=== PATIENT | female | born 1970 | race Caucasian/White ===

== ENCOUNTER 2024-01-13 13:16 | Inpatient (IN) | payer BC ==
--- NOTE | 2024-01-13 13:46 | ED ---
General Adult HPI - General Chief complaint: Extremity Injury, Lower Stated complaint: Left Leg Infection Time Seen by Provider: 01/13/24 13:34 Source: patient Mode of arrival: ambulatory Limitations: no limitations - History of Present Illness Initial comments: Dictation was produced using [employer] dictation software. please excuse any grammatical, word or spelling errors. Chief Complaint: 53-year-old female presents with left ankle pain History of Present Illness: Patient is a 53-year-old female presents with left ankle pain. She has been having the symptoms for the last 3 weeks. Patient has history of rheumatoid arthritis she went to the urgent care on Friday and was told that it was secondary to cellulitis she was put on Bactrim and prednisone. She had a similar episode like this in the past and usually her symptoms are resolved with prednisone. Decided come to the emergency department because her symptoms not improving. Patient denies any fever, chills or night sweats. She localizes her pain to the left medial malleolus The ROS documented in this emergency department record has been reviewed and confirmed by me. Those systems with pertinent positive or negative responses have been documented in the HPI. All other systems are other negative and/or noncontributory. - Related Data Home Medications Medication Instructions Recorded Confirmed Albuterol Sulfate [Albuterol 2 puff PO RT-Q6H PRN 01/13/24 01/13/24 Sulfate Hfa] Alendronate Sodium [Fosamax] 70 mg PO DIRECTED 01/13/24 01/13/24 Cetirizine HCl [Zyrtec] 10 mg PO DAILY 01/13/24 01/13/24 Cholecalciferol (Vitamin D3) 125 mcg PO DAILY 01/13/24 01/13/24 [Vitamin D3 (125 MCG = 5,000 IU)] DULoxetine HCL [Cymbalta] 60 mg PO DAILY 01/13/24 01/13/24 Sarilumab [Kevzara] 200 mg SQ Q14D 01/13/24 01/13/24 Sertraline [Zoloft] 100 mg PO DAILY 01/13/24 01/13/24 Simvastatin [Zocor] 80 mg PO HS 01/13/24 01/13/24 Sulfamethoxazole/Trimethoprim 1 tab PO BID 01/13/24 01/13/24 [Bactrim DS 800-160 mg] Varenicline [Chantix Continuing 1 mg PO HS 01/13/24 01/13/24 Pack] predniSONE [Deltasone] 40 mg PO DAILY 01/13/24 01/13/24 Allergies Allergy/AdvReac Type Severity Reaction Status Date / Time cefaclor [From Ceclor] Allergy Rash/Hives Verified 01/13/24 16:03 codeine Allergy Rash/Hives Verified 01/13/24 16:03 Review of Systems ROS Statement: Those systems with pertinent positive or pertinent negative responses have been documented in the HPI. ROS Other: All systems not noted in ROS Statement are negative. Past Medical History Past Medical History: Rheumatoid Arthritis (RA) Additional Past Surgical History / Comment(s): Left arm surgery, Past Psychological History: Depression Smoking Status: Current every day smoker Past Alcohol Use History: None Reported Past Drug Use History: None Reported General Exam - General Exam Comments Initial Comments: General: Well-appearing, nontoxic, no acute distress. Head: Normocephalic, atraumatic Eyes: PERRLA, EOMI ENT: Airway patent Chest: Nonlabored breathing Skin: No visual rash, normal skin tone Neuro: Alert and oriented 3 Musculoskeletal: No gross abnormalities Left ankle: Significant palpatory tenderness to just above the left medial malleolus, warm, tender Limitations: no limitations Course Vital Signs 01/13/24 01/13/24 13:27 15:47 Temperature 98.6 F 98.4 F Pulse Rate 112 H 98 Respiratory 18 18 Rate Blood Pressure 165/91 137/81 O2 Sat by Pulse 99 100 Oximetry Medical Decision Making - Medical Decision Making Was pt. sent in by a medical professional or institution (, PA, ENGINEER FIRST ASSISTANT, urgent care, hospital, or fdc...) When possible be specific @ -No Did you speak to anyone other than the patient for history (EMS, parent, family, police, friend...)? What history was obtained from this source @ -No Did you review nursing and triage notes (agree or disagree)? Why? @ -I reviewed and agree with nursing and triage notes Were old charts reviewed (outside hosp., previous admission, EMS record, old EKG, old radiological studies, urgent care reports/EKG's, fdc records)? Report findings @ -No old charts were reviewed Differential Diagnosis (chest pain, altered mental status, abdominal pain women, abdominal pain men, vaginal bleeding, musculoskeletal, weakness, fever, dyspnea, syncope, headache, dizziness, GI bleed, back pain, seizure, CVA, palpatations, mental health)? @ -Not applicable EKG interpreted by me (3pts min.). @ -None done X-rays interpreted by me (1pt min.). @ -X-ray shows no acute fractures. There does appear to be some soft tissue edema CT interpreted by me (1pt min.). @ -None done U/S interpreted by me (1pt. min.). @ -None done What testing was considered but not performed or refused? (CT, X-rays, U/S, labs)? Why? @ -None What meds were considered but not given or refused? Why? @ -None Did you discuss the management of the patient with other professionals (professionals i.e. , PA, ENGINEER FIRST ASSISTANT, lab, RT, psych nurse, social scientist, smutter, teacher, credit risk officer, case therapist)? Give summary @ -Case discussed with hospitalist for admission Was smoking cessation discussed for >3mins.? @ -No Was critical care preformed (if so, how long)? @ -No Were there social determinants of health that impacted care today? How? (Homelessness, low income, unemployed, alcoholism, drug addiction, transportation, low edu. Level, literacy, decrease access to med. care, [place] [facility], rehab)? @ -No Was there de-escalation of care discussed even if they declined (Discuss DNR or withdrawal of care, Hospice)? DNR status @ -No What co-morbidities impacted this encounter? (DM, HTN, Smoking, COPD, CAD, C ancer, CVA, ARF, Chemo, Hep., AIDS, mental health diagnosis, sleep apnea, morbid obesity)? @ -None Was patient admitted / discharged? Hospital course, mention meds given and route, prescriptions, significant lab abnormalities, going to OR and other pertinent info. @ -53-year-old female presents to the emergency department with left ankle pain. Patient has significant swelling and very palpable tenderness to the left medial ankle area. Laboratory evaluation obtained. Leukocytosis 20.5. Unclear if this is due to an acute infectious process versus demargination from recent prednisone use. Coag panel is negative. CRP is 4.9. Patient's pain is exquisite and seems like her symptoms are getting worse. Patient started on IV vancomycin. Will be admitted observation with consultation to infectious disease. Undiagnosed new problem with uncertain prognosis? @ -No Drug Therapy requiring intensive monitoring for toxicity (Heparin, Nitro, Insulin, Cardizem)? @ -No Were any procedures done? @ -No Diagnosis/symptom? Acute, or Chronic, or Acute on Chronic? Uncomplicated (without systemic symptoms) or Complicated (systemic symptoms)? @ -Left ankle pain Side effects of treatment? @ -No Exacerbation, Progression, or Severe Exacerbation? @ -No Poses a threat to life or bodily function? How? (Chest pain, [place], [place], pneumonia, PE, COPD, DKA, ARF, appy, cholecystitis, CVA, Diverticulitis, Homicidal, Suicidal, threat to staff... and all critical care pts) @ -yes - Lab Data Result diagrams: 01/14/24 07:28 01/14/24 07:28 Lab Results 01/13/24 01/13/24 01/13/24 Range/Units 13:50 13:50 14:30 WBC 20.5 H (3.8-10.6) k/uL RBC 4.99 (3.80-5.40) m/uL Hgb 15.3 (11.4-16.0) gm/dL Hct 45.4 (34.0-46.0) % MCV 91.1 (80.0-100.0) fL MCH 30.7 (25.0-35.0) pg MCHC 33.7 (31.0-37.0) g/dL RDW 12.6 (11.5-15.5) % Plt Count 236 (150-450) k/uL MPV 8.6 Neutrophils % 93 % Lymphocytes % 4 % Monocytes % 2 % Eosinophils % 1 % Basophils % 0 % Neutrophils # 19.1 H (1.3-7.7) k/uL Lymphocytes # 0.8 L (1.0-4.8) k/uL Monocytes # 0.4 (0-1.0) k/uL Eosinophils # 0.2 (0-0.7) k/uL Basophils # 0.0 (0-0.2) k/uL ESR 29 (0-30) mm/Hr PT 9.7 L (10.0-12.5) sec INR 0.9 (<1.2) APTT 22.6 (22.0-30.0) sec Sodium 139 (137-145) mmol/L Potassium 4.2 (3.5-5.1) mmol/L Chloride 106 (98-107) mmol/L Carbon Dioxide 23 (22-30) mmol/L Anion Gap 10 mmol/L BUN 16 (7-17) mg/dL Creatinine 0.60 (0.52-1.04) mg/dL Est GFR (CKD-EPI)AfAm >90 (>60 ml/min/1.73 sqM) Est GFR (CKD-EPI)NonAf >90 (>60 ml/min/1.73 sqM) Glucose 119 H (74-99) mg/dL Calcium 9.4 (8.4-10.2) mg/dL C-Reactive Protein 4.9 H (<1.0) mg/dL Disposition Clinical Impression: Cellulitis Disposition: ADMITTED IP TO THIS [facility] Condition: Fair Decision Time: 15:22
[2024-01-13 14:16] LABS: Basophils % (A) 0 %; Eosinophils # (A) 0.2 k/uL (0-0.7); Eosinophils % (A) 1 %; HCT 45.4 % (34.0-46.0); HGB 15.3 gm/dL (11.4-16.0); Lymphocytes # (A) 0.8 k/uL (1.0-4.8); Lymphocytes % (A) 4 %; MCH 30.7 pg (25.0-35.0); MCHC 33.7 g/dL (31.0-37.0); MCV 91.1 fL (80.0-100.0); Mean Platelet Volume 8.6; Monocytes # (A) 0.4 k/uL (0-1.0); Monocytes % (A) 2 %; Neutrophils # (A) 19.1 k/uL (1.3-7.7); Neutrophils % (A) 93 %; Platelet Count 236 k/uL (150-450); RBC 4.99 m/uL (3.80-5.40); RDW 12.6 % (11.5-15.5); WBC 20.5 k/uL (3.8-10.6)
[2024-01-13 14:29] LABS: African American GFR (CKD) >90 (>60 ml/min/1.73 sqM); Anion Gap 10 mmol/L; Blood Urea Nitrogen 16 mg/dL (7-17); Calcium 9.4 mg/dL (8.4-10.2); Carbon Dioxide 23 mmol/L (22-30); Chloride 106 mmol/L (98-107); Glucose 119 mg/dL (74-99); Non-African American GFR(CKD) >90 (>60 ml/min/1.73 sqM); Potassium 4.2 mmol/L (3.5-5.1); Sodium 139 mmol/L (137-145)
--- NOTE | 2024-01-13 14:37 | XR ---
EXAMINATION TYPE: XR ankle complete LT DATE OF EXAM: 01/13/2024 COMPARISON: NONE HISTORY: Pain FINDINGS: Three views of the ankle demonstrate the ankle mortise to be intact and symmetric. The joint spaces are preserved. The osseous structures are intact. Soft tissue swelling. IMPRESSION: 1. No definite acute fracture or dislocation, if symptoms persist follow-up study in 7 to 10 days wou ld be suggested. 2. Soft tissue edema.
[2024-01-13 14:44] LABS: C Reactive Protein 4.9 mg/dL (<1.0)
[2024-01-13 15:05] LABS: INR 0.9 (<1.2); Partial Thromboplastin Time 22.6 sec (22.0-30.0); Prothrombin Time 9.7 sec (10.0-12.5)
[2024-01-13] MEDS ORDERED: ONDANSETRON 4 MG/2 ML VIAL IVP PRN (15:19)
[2024-01-13] MEDS ORDERED: NALOXONE 0.4 MG/ML 1 ML VIAL IV PRN (15:19)
[2024-01-13] MEDS ORDERED: VANCOMYCIN IV PER PHARMACY 1 EACH MISC MISCELLANE PRN (15:21)
[2024-01-13] MEDS: SODIUM CHLORIDE 0.9% 1,000 ML IV SCH (15:46)
[2024-01-13] MEDS: MORPHINE SULFATE 4 MG/ML SYRINGE IV PRN (15:49)
[2024-01-13] MEDS: VANCOMYCIN 1,250 MG in SODIUM CHLORIDE 0.9% 250 ML IVPB STA (16:11)
[2024-01-13] MEDS ORDERED: NICOTINE GUM (POLACRILEX) 2 MG GUM BUCCAL PRN (17:18)
[2024-01-13] MEDS ORDERED: HYDROcodone/APAP 5-325MG 1 EACH TAB PO PRN (17:18)
[2024-01-13] MEDS ORDERED: MELATONIN 3 MG TABLET PO PRN (17:18)
[2024-01-13] MEDS ORDERED: ALBUTEROL NEBULIZED 2.5 MG/3 ML INHALATION PRN (17:29)
--- NOTE | 2024-01-13 17:29 | P.HPIM ---
History of Present Illness H&P Date: 01/13/24 Patient is a 53-year-old female with rheumatoid arthritis treated with..., Tobacco dependency, dyslipidemia, and osteoporosis who presented to the emergency department with complaints of worsening left ankle pain. She has been having pain for 3 weeks prior to presentation. She was seen at urgent care on 01/11/2024 and was diagnosed with cellulitis. She was therefore put on Bactrim and prednisone. On arrival to the ER she was found to be tachycardic with a pulse of 112. Laboratory analysis included CBC, basic metabolic profile, coags, and CRP which was remarkable for white blood cell count 20.5 and CRP of 4.9. X- ray of the ankle found soft tissue edema with no definitive fracture. In the ER she was given a dose of vancomycin and morphine for pain control. Arrangements were made for observation. Patient seen and examined at bedside. She reports that she noted some swelling and redness in her leg late last week. On Friday she could still walk on it and went to the urgent care and got started on prednisone and Bactrim. She has had increasing edema and pain in that left lower extremity. She has been taking ibuprofen almost [id number] to help with the pain. She reports the pain is the worst when her leg is hanging down or with walking. She does not note much pain increased with just moving her ankle. She is due for her next injection of her IL-6 inhibitor on 01/16/2024. She has not required much prednisone over the last 3 years and does not take it on a daily basis. She recently started Chantix. She denies any known injury or open lesions to the ar ea. She noticed a blood blister forming just today. No other complaints per currently. Vital signs reviewed General: nontoxic, no distress, appears at stated age Derm: warm, dry Eyes: EOMI, no lid lag, anicteric sclera, pupils equal round reactive to light ENT: Nose and ears atraumatic Cardiovascular: S1S2 reg, no murmur, no edema Lungs: clear to auscultation bilateral, no rhonchi, no rales, no wheeze, no accessory muscle use Abdominal: soft, nontender to palpation, no guarding Ext: no gross muscle atrophy, no contractures, erythema to the left ankle, medial aspect with approximately half centimeter blood blister. Flexion and extension at the ankle intact. Neuro: CN II-XII grossly intact, No focal neuro deficits Psych: Alert, oriented, appropriate affect Assessment/Plan: Left lower extremity cellulitis, failed outpatient treatment Sepsis - concern for possible underlying infectious arthritis - vancomycin pharmacy to dose, monitor Cr and trough D # 1 - add unasyn for possibel Gram negative coverage 3 g IBPB q 6 h D # 1 - Stop prednisone as this is consistent with cellulitis and not RA flare - hold IL-6 inhibitor - await ID recs -Tramadol 50 mg p.o. every 6 hours as needed moderate pain, morphine 4 mg IV every 4 hours as needed moderate pain (of note patient has a reported codeine allergy but tolerated morphine in the ER) - repeat CBC and BMP in AM - LR at 75 cc/hr Tobacco dependency -Nicotine patch 14 mcg daily, nicotine gum 2 mg every 2 hours as needed nicotine cravings Imaging: per HPI Data Review: per HPI The patient is placed in observation with an anticipated less than 2 midnight stay for evaluation of cellulitis with sepsis. Surrogate decision-maker: CODE STATUS:Full DVT prophylaxis: SCDs Anticipated discharge date: in 24-[address]: home This dictation was prepared using [employer] voice recognition software. Though every attempt is made to correct errors during dictation some may still exist. Past Medical History Past Medical History: Hyperlipidemia, Rheumatoid Arthritis (RA) Additional Past Medical History / Comment(s): osteoprosis, seasonal allergies, Additional Past Surgical History / Comment(s): Left arm surgery, Past Psychological History: Depression Smoking Status: Current every day smoker Past Alcohol Use History: None Reported Past Drug Use History: None Reported Medications and Allergies Home Medications Medication Instructions Recorded Confirmed Type Albuterol Sulfate [Albuterol 2 puff PO RT-Q6H PRN 01/13/24 01/13/24 History Sulfate Hfa] Alendronate Sodium [Fosamax] 70 mg PO DIRECTED 01/13/24 01/13/24 History Cetirizine HCl [Zyrtec] 10 mg PO DAILY 01/13/24 01/13/24 History Cholecalciferol (Vitamin D3) 125 mcg PO DAILY 01/13/24 01/13/24 History [Vitamin D3 (125 MCG = 5,000 IU)] DULoxetine HCL [Cymbalta] 60 mg PO DAILY 01/13/24 01/13/24 History Sarilumab [Kevzara] 200 mg SQ Q14D 01/13/24 01/13/24 History Sertraline [Zoloft] 100 mg PO DAILY 01/13/24 01/13/24 History Simvastatin [Zocor] 80 mg PO HS 01/13/24 01/13/24 History Sulfamethoxazole/Trimethoprim 1 tab PO BID 01/13/24 01/13/24 History [Bactrim DS 800-160 mg] Varenicline [Chantix Continuing 1 mg PO HS 01/13/24 01/13/24 History Pack] predniSONE [Deltasone] 40 mg PO DAILY 01/13/24 01/13/24 History Allergies Allergy/AdvReac Type Severity Reaction Status Date / Time cefaclor [From [facility]] Allergy Rash/Hives Verified 01/13/24 16:03 codeine Allergy Rash/Hives Verified 01/13/24 16:03 Physical Exam Osteopathic Statement: *. No significant issues noted on an osteopathic struct ural exam other than those noted in the History and Physical/Consult. Vitals: Vital Signs Temp Pulse Resp BP Pulse Ox 01/13/24 15:47 98.4 F 98 18 137/81 100 01/13/24 13:27 98.6 F 112 H 18 165/91 99 Intake and Output 01/13/24 01/13/24 01/13/24 06:59 14:59 22:59 Other: Weight 71.214 kg Results CBC & Chem 7: 01/13/24 13:50 01/13/24 13:50 Labs: Abnormal Lab Results - Last 24 Hours (Table) 01/13/24 01/13/24 01/13/24 Range/Units 13:50 13:50 14:30 WBC 20.5 H (3.8-10.6) k/uL Neutrophils # 19.1 H (1.3-7.7) k/uL Lymphocytes # 0.8 L (1.0-4.8) k/uL PT 9.7 L (10.0-12.5) sec Glucose 119 H (74-99) mg/dL C-Reactive Protein 4.9 H (<1.0) mg/dL
[2024-01-13] MEDS: traMADol 50 MG TAB PO PRN (18:46)
[2024-01-13] MEDS: AMPICILLIN-SULBACTAM 3 GM in SODIUM CHLORIDE 0.9% 100 ML IVPB SCH (18:47)
[2024-01-13] MEDS: NICOTINE 14MG/24HR PATCH TRANSDERM SCH (18:47)
[2024-01-13 18:49] LABS: Erythrocyte Sedimentation Rate 29 mm/Hr (0-30)
[2024-01-13] MEDS: VARENICLINE 1 MG TAB PO SCH (21:20)
[2024-01-13] MEDS: ATORVASTATIN 40 MG TAB PO SCH (21:20)
[2024-01-13] MEDS: HYDROmorphone 0.5 MG/0.5 ML SYRINGE IVP PRN (22:00)
[2024-01-13] MEDS: LACTATED RINGERS 1,000 ML IV SCH (22:03)
--- NOTE | 2024-01-13 23:04 | P.CONS ---
History of Present Illness - Reason for Consult Consult date: 01/13/24 Cellulitis Requesting physician: Clovis Portillo - Chief Complaint Left ankle pain and swelling x days - History of Present Illness Patient is a 53-year-old female with a past medical history significant for depression rheumatoid arthritis presenting to the hospital for evaluation of worsening pain to the left ankle area patient symptom has been going on for more than a week and denies any history of any trauma started with increasing pain to the left ankle area patient for the patient was evaluated at the urgent care diagnosed with a cellulitis and has been treated with steroids and Bactrim however the patient did not have any improvement he noticed to have increasing pain to the left ankle area with associated swelling and redness patient describing the pain to be sharp about 8 out of 10 without any radiation with associated swelling and redness but no drainage patient did not recall any fever however mention she has been taking Motrin [id number] and on presentation to the hospital the patient was noticed to be afebrile patient was tachycardic but not hypotensive or hypoxic did have white count of 20,000 with a left shift creatinine was normal CRP of 4.9 patient did have the ankle x-ray no definite acute fracture or dislocation soft tissue edema patient was started on vancomycin and Keelysyn infectious disease was consulted for further management of antibiotic therapy Review of Systems Positive point and negatives has been mentioned in the HPI, complete review of systems was performed and all other systems are negative Past Medical History Past Medical History: Rheumatoid Arthritis (RA) Additional Past Surgical History / Comment(s): Left arm surgery, Past Psychological History: Depression Smoking Status: Current every day smoker Past Alcohol Use History: None Reported Past Drug Use History: None Reported Medications and Allergies Home Medications Medication Instructions Recorded Confirmed Type Albuterol Sulfate [Albuterol 2 puff PO RT-Q6H PRN 01/13/24 01/13/24 History Sulfate Hfa] Alendronate Sodium [Fosamax] 70 mg PO DIRECTED 01/13/24 01/13/24 History Cetirizine HCl [Zyrtec] 10 mg PO DAILY 01/13/24 01/13/24 History Cholecalciferol (Vitamin D3) 125 mcg PO DAILY 01/13/24 01/13/24 History [Vitamin D3 (125 MCG = 5,000 IU)] DULoxetine HCL [Cymbalta] 60 mg PO DAILY 01/13/24 01/13/24 History Sarilumab [Kevzara] 200 mg SQ Q14D 01/13/24 01/13/24 History Sertraline [Zoloft] 100 mg PO DAILY 01/13/24 01/13/24 History Simvastatin [Zocor] 80 mg PO HS 01/13/24 01/13/24 History Varenicline [Chantix Continuing 1 mg PO HS 01/13/24 01/13/24 History Pack] Amoxic-Pot Clav 875-125Mg 1 tab PO Q12HR 10 Days #20 tab 01/17/24 Rx [Augmentin 875-125] Allergies Allergy/AdvReac Type Severity Reaction Status Date / Time cefaclor [From [facility]] Allergy Rash/Hives Verified 01/13/24 16:03 codeine Allergy Rash/Hives Verified 01/13/24 16:03 Physical Exam Vitals: Vital Signs Temp Pulse Resp BP Pulse Ox 01/13/24 15:47 98.4 F 98 18 137/81 100 01/13/24 13:27 98.6 F 112 H 18 165/91 99 Intake and Output 01/13/24 01/13/24 01/13/24 06:59 14:59 22:59 Other: Weight 71.214 kg GENERAL DESCRIPTION: Middle-aged female lying in bed, no distress. No tachypnea or accessory muscle of respiration use. HEENT: Shows Pallor , no scleral icterus. Oral mucous membrane is dry. NECK: Trachea central, no thyromegaly. LUNGS: Unlabored breathing. Clear to auscultation anteriorly. No wheeze or crackle. HEART: S1, S2, regular rate and rhythm. No loud murmur ABDOMEN: Soft, no tenderness , guarding or rigidity, no organomegaly EXTREMITIES: Left ankle area did have area of swelling redness induration and tenderness SKIN: No rash, no masses palpable. NEUROLOGICAL: The patient is awake, alert, oriented x3, mood and affect normal. Results CBC & Chem 7: 01/16/24 05:42 01/17/24 06:22 Labs: Abnormal Lab Results - Last 24 Hours (Table) 01/13/24 01/13/24 01/13/24 Range/Units 13:50 13:50 14:30 WBC 20.5 H (3.8-10.6) k/uL Neutrophils # 19.1 H (1.3-7.7) k/uL Lymphocytes # 0.8 L (1.0-4.8) k/uL PT 9.7 L (10.0-12.5) sec Glucose 119 H (74-99) mg/dL C-Reactive Protein 4.9 H (<1.0) mg/dL Assessment and Plan (1) Cellulitis Current Visit: Yes Status: Acute Code(s): L03.90 - CELLULITIS, UNSPECIFIED SNOMED Code(s): 081936892 (2) Cutaneous abscess of left ankle Current Visit: Yes Status: Acute Priority: Medium Code(s): L02.416 - CUTANEOUS ABSCESS OF LEFT LOWER LIMB SNOMED Code(s): 30264226894661772 (3) Sepsis Current Visit: Yes Status: Acute Code(s): A41.9 - SEPSIS, UNSPECIFIED ORGANISM SNOMED Code(s): 67685676 Plan: 1patient presented to hospital with increasing pain and swelling and redness to the left ankle area concerning for cellulitis patient however did have an area of induration and fluctuation with concern for possible abscess and may benefit from orthopedic foot and ankle for possible aspiration of the area and sending it for culture 2-patient did have a cephalosporin allergy that will limit the number of antibiotics safe to use 3-for now continue with the vancomycin and Unasyn while waiting for the workup to be completed Multiple question concern answered We will follow on clinical condition and cultures to further adjust medication if needed Thank you for this consultation we will follow the patient along with you Dictation was produced using [employer] dictation software. please excuse any grammatical, word or spelling errors. Time with Patient: Greater than 30
[2024-01-14] MEDS: VANCOMYCIN 1,250 MG in SODIUM CHLORIDE 0.9% 250 ML IVPB SCH ×2 (00:19→20:37)
[2024-01-14] MEDS: ACETAMINOPHEN TAB 325 MG TAB PO PRN (01:00)
[2024-01-14 08:09] LABS: ALT 17 U/L (4-34); AST 17 U/L (14-36); African American GFR (CKD) >90 (>60 ml/min/1.73 sqM); Albumin 3.8 g/dL (3.5-5.0); Albumin/Globulin Ratio 1.5; Alkaline Phosphatase 75 U/L (38-126); Anion Gap 10 mmol/L; Blood Urea Nitrogen 10 mg/dL (7-17); Carbon Dioxide 23 mmol/L (22-30); Chloride 108 mmol/L (98-107); Globulin 2.6 g/dL; Glucose 85 mg/dL (74-99); Non-African American GFR(CKD) >90 (>60 ml/min/1.73 sqM); Potassium 3.9 mmol/L (3.5-5.1); Sodium 141 mmol/L (137-145); Total Bilirubin 0.4 mg/dL (0.2-1.3); Total Protein 6.4 g/dL (6.3-8.2)
[2024-01-14 09:07] LABS: HCT 42.2 % (34.0-46.0); HGB 14.3 gm/dL (11.4-16.0); MCH 32.2 pg (25.0-35.0); MCV 94.9 fL (80.0-100.0); Mean Platelet Volume 8.8; Platelet Count 180 k/uL (150-450); RBC 4.44 m/uL (3.80-5.40); RDW 13.1 % (11.5-15.5); WBC 14.2 k/uL (3.8-10.6)
[2024-01-14] MEDS: DOCUSATE 100 MG CAP PO PRN (09:30)
[2024-01-14] MEDS: LORATADINE 10 MG TAB PO SCH (09:30)
[2024-01-14] MEDS: SERTRALINE 100 MG TAB PO SCH (09:30)
[2024-01-14] MEDS: DULoxetine HCL 60 MG CAPSULE.DR PO SCH (09:30)
[2024-01-14] MEDS: LIDOCAINE 1% INJ 10MG/ML (20 ML MDV) SQ ONE (11:37)
--- NOTE | 2024-01-14 11:51 | P.CNOR ---
History of Present Illness - [facility] Consult date: 01/14/24 Consult reason: joint pain (Left ankle pain, swelling.) History of present illness: This is a 53-year-old female who presented to the emergency department this week with severe left ankle pain and swelling. She states that the symptoms began initially on December 30 or and she noticed there was some redness and swelling to the ankle. She was seen in urgent care and placed on prednisone and an antibiotic and her symptoms did improve. She then began to have worsening of her symptoms once she was off the prednisone. She does have history of rheumatoid arthritis. On presentation to the ER she had an elevated white count of 20 and elevated CRP and sed rate. She is admitted for IV antibiotics. We are consulted for orthopedic evaluation of her left ankle. Past Medical History Past Medical History: Rheumatoid Arthritis (RA) Additional Past Medical History / Comment(s): osteoprosis, seasonal allergies, History of Any Multi-Drug Resistant Organisms: None Reported Additional Past Surgical History / Comment(s): Left arm surgery, Past Anesthesia/Blood Transfusion Reactions: No Reported Reaction Past Psychological History: Depression Smoking Status: Current every day smoker Past Alcohol Use History: None Reported Past Drug Use History: None Reported Medications and Allergies Home Medications Medication Instructions Recorded Confirmed Type Albuterol Sulfate [Albuterol 2 puff PO RT-Q6H PRN 01/13/24 01/13/24 History Sulfate Hfa] Alendronate Sodium [Fosamax] 70 mg PO DIRECTED 01/13/24 01/13/24 History Cetirizine HCl [Zyrtec] 10 mg PO DAILY 01/13/24 01/13/24 History Cholecalciferol (Vitamin D3) 125 mcg PO DAILY 01/13/24 01/13/24 History [Vitamin D3 (125 MCG = 5,000 IU)] DULoxetine HCL [Cymbalta] 60 mg PO DAILY 01/13/24 01/13/24 History Sarilumab [Kevzara] 200 mg SQ Q14D 01/13/24 01/13/24 History Sertraline [Zoloft] 100 mg PO DAILY 01/13/24 01/13/24 History Simvastatin [Zocor] 80 mg PO HS 01/13/24 01/13/24 History Sulfamethoxazole/Trimethoprim 1 tab PO BID 01/13/24 01/13/24 History [Bactrim DS 800-160 mg] Varenicline [Chantix Continuing 1 mg PO HS 01/13/24 01/13/24 History Pack] predniSONE [Deltasone] 40 mg PO DAILY 01/13/24 01/13/24 History Allergies Allergy/AdvReac Type Severity Reaction Status Date / Time cefaclor [From [facility]] Allergy Rash/Hives Verified 01/13/24 16:03 codeine Allergy Rash/Hives Verified 01/13/24 16:03 Physical Examination This is a pleasant but emotionally distraught 53-year-old female. She is alert and oriented. The patient was sobbing in her bed when I entered the room. She states that she is in severe 10/10 pain. Now her shoulder is beginning to hurt as well. Exam of the head neck revealed no obvious deformity. She has full cervical spine motion without difficulty or pain. Exam of the upper extremities reveals no obvious deformity. She is moving her shoulders, elbows, wrists and fingers bilaterally without difficulty. She is placing ice on her right shoulder for acute pain. Exam of the lower extremities reveals redness and swelling to the medial aspect of her ankle. The redness and swelling to extend into the anterior aspect and there may be a slight joint effusion. There is a fluctuant area over the medial malleolar area. She is able to move the foot and ankle without too much difficulty. Neurovascular status to the lower extremity is intact. Results X-rays of the left ankle reveal no acute bony abnormality. Minimal arthritic changes. - Labs Labs: Abnormal Lab Results - Last 24 Hours (Table) 01/13/24 01/13/24 01/13/24 Range/Units 13:50 13:50 14:30 WBC 20.5 H (3.8-10.6) k/uL Neutrophils # 19.1 H (1.3-7.7) k/uL Lymphocytes # 0.8 L (1.0-4.8) k/uL PT 9.7 L (10.0-12.5) sec Chloride (98-107) mmol/L Creatinine (0.52-1.04) mg/dL Glucose 119 H (74-99) mg/dL C-Reactive Protein 4.9 H (<1.0) mg/dL 01/14/24 01/14/24 Range/Units 07:28 07:28 WBC 14.2 H (3.8-10.6) k/uL Neutrophils # (1.3-7.7) k/uL Lymphocytes # (1.0-4.8) k/uL PT (10.0-12.5) sec Chloride 108 H (98-107) mmol/L Creatinine 0.48 L (0.52-1.04) mg/dL Glucose (74-99) mg/dL C-Reactive Protein 7.0 H (<1.0) mg/dL H & H 01/13/24 01/14/24 Range/Units 13:50 07:28 Hgb 15.3 14.3 (11.4-16.0) gm/dL Hct 45.4 42.2 (34.0-46.0) % Coagulation 01/13/24 Range/Units 14:30 INR 0.9 (<1.2) Result Diagrams: 01/14/24 07:28 01/14/24 07:28 Assessment and Plan (1) Cutaneous abscess of left ankle Current Visit: Yes Status: Acute Code(s): L02.416 - CUTANEOUS ABSCESS OF LEFT LOWER LIMB SNOMED Code(s): 96169783481236091 (2) Cellulitis Current Visit: Yes Status: Acute Code(s): L03.90 - CELLULITIS, UNSPECIFIED SNOMED Code(s): 145336323 Plan: The clinical and x-ray findings are discussed with the patient and nursing staff. I first attempted an aspiration of the ankle joint in which I did not obtain any fluid. I then aspirated the area of the fluctuance and obtained approximately 4 cc of purulent material. This material is sent to the lab for culture and sensitivity as well as cell count and crystal identification. I will order an MRI to evaluate for any fluid in the joint itself. It appears that this is a localized cutaneous abscess, however, with her history of rheumatoid arthritis I would like to further evaluate the ankle joint. We will see what the MRI shows and plan potential I&D based on those findings. Continue antibiotics per infectious disease and await cultures. I also recommended moist heat to the ankle instead of ice at this time.
[2024-01-14] MEDS: LORazepam 0.5 MG TAB PO PRN (12:12)
[2024-01-14 12:42] LABS: Color,BF Red
[2024-01-14 12:45] LABS: Appearance,BF Bloody
--- NOTE | 2024-01-14 12:50 | P.PN ---
Subjective Progress Note Date: 01/14/24 Principal diagnosis: Reason for follow-up is left ankle abscess and cellulitis Patient is a 53-year-old female with a past medical history significant for depression rheumatoid arthritis presenting to the hospital for evaluation of worsening pain to the left ankle area, patient has been diagnosed with cellulitis and concerning for localized abscess to the area patient is status post orthopedic aspiration of the area mentioned no fluid in the joint. On today's visit that is 01/14/2024,the patient denies any fever or any chills, patient is breathing comfortably on room air, the patient denies chest pain shortness of breath and no significant cough, patient denies abdominal pain, no nausea vomiting or diarrhea, has been complaining of significant pain to the an kle after aspiration. Patient white count is down to 14.2, creatinine 0.48 Objective - Vital Signs Vital signs: Vital Signs Temp 98.1 F 01/14/24 07:46 Pulse 94 01/14/24 07:46 Resp 16 01/14/24 07:46 BP 137/74 01/14/24 07:46 Pulse Ox 92 L 01/14/24 07:46 FiO2 Intake & Output 01/13/24 01/14/24 01/14/24 18:59 06:59 18:59 Weight 71.214 kg Other: Voiding Method Toilet Toilet Bedside Commode # Voids 1 - Exam GENERAL DESCRIPTION: Middle-age female lying in bed in no distress RESPIRATORY SYSTEM: Unlabored breathing , decreased breath sounds at bases HEART: S1 S2 regular rate and rhythm , ABDOMEN: Soft , no tenderness EXTREMITIES: Left ankle area did have swelling and redness warm and tender to touch - Labs CBC & Chem 7: 01/14/24 07:28 01/14/24 07:28 Labs: Abnormal Lab Results - Last 24 Hours (Table) 01/13/24 01/13/24 01/13/24 Range/Units 13:50 13:50 14:30 WBC 20.5 H (3.8-10.6) k/uL Neutrophils # 19.1 H (1.3-7.7) k/uL Lymphocytes # 0.8 L (1.0-4.8) k/uL PT 9.7 L (10.0-12.5) sec Chloride (98-107) mmol/L Creatinine (0.52-1.04) mg/dL Glucose 119 H (74-99) mg/dL C-Reactive Protein 4.9 H (<1.0) mg/dL 01/14/24 01/14/24 Range/Units 07:28 07:28 WBC 14.2 H (3.8-10.6) k/uL Neutrophils # (1.3-7.7) k/uL Lymphocytes # (1.0-4.8) k/uL PT (10.0-12.5) sec Chloride 108 H (98-107) mmol/L Creatinine 0.48 L (0.52-1.04) mg/dL Glucose (74-99) mg/dL C-Reactive Protein 7.0 H (<1.0) mg/dL Assessment and Plan (1) Cutaneous abscess of left ankle Current Visit: Yes Status: Acute Code(s): L02.416 - CUTANEOUS ABSCESS OF LEFT LOWER LIMB SNOMED Code(s): 30933194336279996 Plan: 1patient presented to hospital with increasing pain and swelling and redness to the left ankle area concerning for cellulitis patient however did have an area of induration and fluctuation with concern for possible abscess, patient has been evaluated by orthopedics fluid has been aspirated sent for culture MRI has been ordered results will be followed 2-patient did have a cephalosporin allergy that will limit the number of antibiotics safe to use 3-f patient to continue with the vancomycin and Unasyn while waiting for the culture to finalize and monitor clinical course closely Dictation was produced using [employer] dictation software. please excuse any grammatical, word or spelling errors.
[2024-01-14] MEDS ORDERED: VANCOMYCIN TROUGH DUE 1 EACH MISC MISCELLANE ONE (15:00)
[2024-01-14] MEDS: ONDANSETRON 4 MG/2 ML VIAL IVP ONE (15:22)
[2024-01-14] MEDS: MIDAZOLAM 2 MG/2 ML VIAL IVP ONE (15:22)
[2024-01-14] MEDS: DEXAMETHASONE SOD PHOSPHATE 4 MG/ML 1 ML VIAL IVP ONE (15:22)
[2024-01-14] MEDS: fentaNYL (PF) 50 MCG/ML 2 ML AMP IVP ONE (15:26)
[2024-01-14] MEDS ORDERED: LIDOCAINE 1% INJ 10MG/ML (20 ML MDV) ONE (15:42)
[2024-01-14] MEDS ORDERED: KETOROLAC 15 MG/ML 1 ML VIAL ONE (15:42)
[2024-01-14] MEDS ORDERED: SUCCINYLCHOLINE CHLORIDE 200 MG/10 ML VIAL IV ONE (15:42)
[2024-01-14] MEDS ORDERED: fentaNYL (PF) 50 MCG/ML 2 ML AMP ONE (15:42)
[2024-01-14] MEDS ORDERED: PROPOFOL 10 MG/ML 20 ML VIAL IV ONE (15:42)
--- NOTE | 2024-01-14 16:19 | P.OP ---
Date of Procedure: 01/14/24 Procedure(s) Performed: left ankle subcutaneous abscess irrigation and drain placement 1 liter rinse hibiclens solution culture taken and tissue sample sent to pathology no complications 25 ebl no tourniquet used 1.5 inch incision created Abscess cavity extended in subcutanous region about 6 inches above incision. No obvious communication with the joint.
--- NOTE | 2024-01-14 16:23 | P.PN ---
Subjective Progress Note Date: 01/14/24 (delayed charting seen t 0845) Patient is a 53-year-old female with rheumatoid arthritis treated with..., Tobacco dependency, dyslipidemia, and osteoporosis who presented to the emergency department with complaints of worsening left ankle pain. She has been having pain for 3 weeks prior to presentation. She was seen at urgent care on 01/11/2024 and was diagnosed with cellulitis. She was therefore put on Bactrim and prednisone. On arrival to the ER she was found to be tachycardic with a pul se of 112. Laboratory analysis included CBC, basic metabolic profile, coags, and CRP which was remarkable for white blood cell count 20.5 and CRP of 4.9. X- ray of the ankle found soft tissue edema with no definitive fracture. In the ER she was given a dose of vancomycin and morphine for pain control. Arrangements were made for observation. Patient seen and examined at bedside. Increasing pain in the left ankle. This is mostly when attempting to walk on it and hang the ankle over the side of the bed. She reports increased swelling. She is still able to flex and extend at the ankle. Vital signs reviewed General: Nontoxic, no distress, appears at stated age Cardiovascular: S1S2 reg, no murmur Lungs: CTA bilateral, no rhonchi, no rales, no accessory muscle use Abdominal: Soft, nontender to palpation, no guarding Ext: No gross muscle atrophy, no edema b/l lower extremities, no contractures, erythema to the left ankle- increasing with spread into foot, medial aspect with approximately half centimeter blood blister. Flexion and extension at the ankle intact. Neuro: CN II-XI grossly intact, no focal neuro deficits Psych: Alert, oriented, appropriate affect Assessment/Plan: Left lower extremity cellulitis, failed outpatient treatment Sepsis Rheumatoid arthritis - concern for possible underlying infectious arthritis - vancomycin pharmacy to dose, monitor Cr and trough D # 2 - Add unasyn for possibel Gram negative coverage 3 g IBPB q 6 h D # 2 - Stop prednisone as this is consistent with cellulitis and not RA flare - hold IL-6 inhibitor -ID [place] reviewed: Continue with Vanco and Unasyn -Orthopedic consult placed. They have seen the patient and were able to aspirate purulent fluid which was sent for culture and crystal. MRI ordered to evaluate for fluid within the joint itself. [place] to be local cutaneous abscess. -Tramadol 50 mg p.o. every 6 hours as needed moderate pain, morphine 4 mg IV every 4 hours as needed moderate pain (of note patient has a reported codeine allergy but tolerated morphine in the ER) - repeat CBC and BMP in AM - LR at 75 cc/hr Tobacco dependency -Nicotine patch 14 mcg daily, nicotine gum 2 mg every 2 hours as needed nicotine cravings Condition patient inpatient status. Patient was admitted with sepsis. She is immunosuppressed with an IL-6 inhibitor secondary to rheumatoid arthritis. Despite her white blood cell count improving her clinical picture has worsened with increasing area of redness and fluctuance. Discharge at this time could compromise the patient care including worsening sepsis that could lead to . Missing the diagnosis of septic arthritis which again could cause permanent injury to the patient. Therefore she will be transition to inpatient status. Imaging: None new Data Review: Labs reviewed from today include CBC and basic metabolic profile which are remarkable for white blood cell count of 14.2. DVT prophylaxis: SCDs Anticipated discharge date: pending clinical course Anticipated discharge place: pending clinical course This dictation was prepared using [employer] voice recognition software. Though every attempt is made to correct errors during dictation some may still exist. Objective - Vital Signs Vital signs: Vital Signs Temp 98 F 01/14/24 15:05 Pulse 100 01/14/24 15:05 Resp 16 01/14/24 15:05 BP 130/72 01/14/24 15:05 Pulse Ox 100 01/14/24 15:05 FiO2 Intake & Output 01/13/24 01/14/24 01/14/24 18:59 06:59 18:59 Intake Total 100 Balance 100 Weight 71.214 kg Intake: IV 100 Other: Voiding Method Toilet Toilet Bedside Commode # Voids 1 - Labs CBC & Chem 7: 01/14/24 07:28 01/14/24 07:28 Labs: Abnormal Lab Results - Last 24 Hours (Table) 01/14/24 01/14/24 Range/Units 07:28 07:28 WBC 14.2 H (3.8-10.6) k/uL Chloride 108 H (98-107) mmol/L Creatinine 0.48 L (0.52-1.04) mg/dL C-Reactive Protein 7.0 H (<1.0) mg/dL
[2024-01-14] MEDS: IV FLUID CONTINUATION 1,000 ML IV ONE (16:27)
[2024-01-14] MEDS: LORazepam 0.5 MG TAB ONE (16:52)
[2024-01-14] MEDS: LIDOCAINE 1% INJ 10MG/ML (20 ML MDV) ONE (16:53)
[2024-01-14] MEDS ORDERED: HYDROmorphone 0.5 MG/0.5 ML SYRINGE IVP PRN (17:04)
[2024-01-14] MEDS ORDERED: HYDROmorphone 1 MG/ML 1 ML SYRINGE IVP PRN (17:04)
[2024-01-14] MEDS ORDERED: TEMAZEPAM 15 MG CAP PO PRN (17:04)
[2024-01-14] MEDS: VANCOMYCIN TROUGH DUE 1 EACH MISC MISCELLANE ONE (20:28)
[2024-01-14 21:22] LABS: Synovial Fld Crystals None Seen (None Seen)
[2024-01-14] MEDS: HYDROmorphone 0.5 MG/0.5 ML SYRINGE IVP PRN (21:45)
[2024-01-15] MEDS: VANCOMYCIN TROUGH DUE 1 EACH MISC MISCELLANE ONE (10:50)
[2024-01-15] MEDS: oxyCODONE-APAP 5-325MG 1 EACH TAB PO PRN (10:51)
[2024-01-15] MEDS: bisacodyL 5 MG TABLET.DR PO PRN (10:51)
[2024-01-15 12:09] LABS: ALT 17 U/L (4-34); AST 19 U/L (14-36); African American GFR (CKD) >90 (>60 ml/min/1.73 sqM); Albumin 3.3 g/dL (3.5-5.0); Albumin/Globulin Ratio 1.4; Alkaline Phosphatase 69 U/L (38-126); Anion Gap 6 mmol/L; Blood Urea Nitrogen 9 mg/dL (7-17); Calcium 8.6 mg/dL (8.4-10.2); Carbon Dioxide 26 mmol/L (22-30); Chloride 107 mmol/L (98-107); Globulin 2.4 g/dL; Glucose 102 mg/dL (74-99); Non-African American GFR(CKD) >90 (>60 ml/min/1.73 sqM); Potassium 3.8 mmol/L (3.5-5.1); Sodium 139 mmol/L (137-145); Total Bilirubin 0.3 mg/dL (0.2-1.3); Total Protein 5.7 g/dL (6.3-8.2)
[2024-01-15 12:16] LABS: HCT 32.9 % (34.0-46.0); MCH 31.1 pg (25.0-35.0); MCHC 34.2 g/dL (31.0-37.0); MCV 90.9 fL (80.0-100.0); Mean Platelet Volume 8.9; Platelet Count 181 k/uL (150-450); RBC 3.62 m/uL (3.80-5.40); RDW 12.3 % (11.5-15.5); WBC 11.2 k/uL (3.8-10.6)
[2024-01-15 12:21] LABS: HGB 11.3 gm/dL (11.4-16.0)
[2024-01-15 13:19] LABS: C Reactive Protein 17.2 mg/dL (<1.0)
--- NOTE | 2024-01-15 15:36 | P.PN ---
Subjective Progress Note Date: 01/15/24 Principal diagnosis: Reason for follow-up is left ankle abscess and cellulitis Patient is a 53-year-old female with a past medical history significant for depression rheumatoid arthritis presenting to the hospital for evaluation of worsening pain to the left ankle area, patient has been diagnosed with cellulitis and concerning for localized abscess to the area patient is status post orthopedic aspiration of the area mentioned no fluid in the joint./Patient did have a drainage of the left ankle abscess which was noticed to be superficial subcutaneous and mention no extension to the joint. On today's visit 01/15/2024,the patient remains to be afebrile, patient is on room air not requiring supplemental oxygen and denies any shortness of breath no chest pain or cough.Patient denies having any nausea or vomiting, no abdominal pain and no diarrhea has been reported, pain to the left ankle area has slightly decreased in intensity. Patient white count is down to 11.2, creatinine 0.45 cultures are currently pending vancomycin trough of 13.4 Objective - Vital Signs Vital signs: Vital Signs Temp 97.8 F 01/15/24 08:08 Pulse 89 01/15/24 08:08 Resp 16 01/15/24 08:08 BP 123/79 01/15/24 08:08 Pulse Ox 100 01/15/24 08:08 FiO2 Intake & Output 01/14/24 01/15/24 01/15/24 18:59 06:59 18:59 Intake Total 800 Output Total 25 Balance 775 Weight 71.214 kg Intake: IV 550 Intake, IV Titration 250 Amount Vancomycin 1,250 mg In 250 Sodium Chloride 0.9% 250 ml @ 125 mls/hr IVPB Q8H [facility] Rx#:[id number] Output: Estimated Blood Loss 25 Other: Voiding Method Toilet Toilet Toilet Bedside Commode Bedside Commode Bedside Commode # Voids 1 - Exam GENERAL DESCRIPTION: Middle-age female lying in bed in no distress RESPIRATORY SYSTEM: Unlabored breathing , decreased breath sounds at bases HEART: S1 S2 regular rate and rhythm , ABDOMEN: Soft , no tenderness EXTREMITIES: Left ankle area did have swelling and redness warm and tender to t ouch - Labs CBC & Chem 7: 01/15/24 10:46 01/15/24 10:46 Labs: Abnormal Lab Results - Last 24 Hours (Table) 01/15/24 01/15/24 Range/Units 10:46 10:46 WBC 11.2 H (3.8-10.6) k/uL RBC 3.62 L (3.80-5.40) m/uL Hgb 11.3 L D (11.4-16.0) gm/dL Hct 32.9 L (34.0-46.0) % Creatinine 0.45 L (0.52-1.04) mg/dL Glucose 102 H (74-99) mg/dL Total Protein 5.7 L (6.3-8.2) g/dL Albumin 3.3 L (3.5-5.0) g/dL Microbiology - Last 24 Hours (Table) 01/14/24 11:35 Gram Stain - Preliminary Aspirate Body Fluid Culture - Preliminary Assessment and Plan (1) Cutaneous abscess of left ankle Current Visit: Yes Status: Acute Code(s): L02.416 - CUTANEOUS ABSCESS OF LEFT LOWER LIMB SNOMED Code(s): 94458321635781632 Plan: 1patient presented to hospital with increasing pain and swelling and redness to the left ankle area concerning for cellulitis patient however did have an area of induration and fluctuation with concern for possible abscess, patient has been evaluated by orthopedics fluid has been aspirated sent for culture MRI has been ordered which is currently pending completion 2-patient to continue with the vancomycin and Unasyn while waiting for the culture to finalize and monitor clinical course closely Dictation was produced using [employer] dictation software. please excuse any gramma tical, word or spelling errors. Time with Patient: Less than 30
--- NOTE | 2024-01-15 17:18 | P.PN ---
Subjective Progress Note Date: 01/15/24 (delayed charting seen at 0845) Patient is a 53-year-old female with rheumatoid arthritis treated with..., Tobacco dependency, dyslipidemia, and osteoporosis who presented to the emergency department with complaints of worsening left ankle pain. She has been having pain for 3 weeks prior to presentation. She was seen at urgent care on 01/11/2024 and was diagnosed with cellulitis. She was therefore put on Bactrim and prednisone. On arrival to the ER she was found to be tachycardic with a pu lse of 112. Laboratory analysis included CBC, basic metabolic profile, coags, and CRP which was remarkable for white blood cell count 20.5 and CRP of 4.9. X- ray of the ankle found soft tissue edema with no definitive fracture. In the ER she was given a dose of vancomycin and morphine for pain control. Arrangements were made for observation. Infectious disease and orthopedic surgery were consul queta. She was seen by orthopedic surgery on 01/13. Initially she had a bedside aspirate done which showed 4 cc of purulent material into the subcutaneous abscess. Patient was then taken to the OR for left subcutaneous abscess irrigation and drain placement. She was rinsed with 1 L of fluid. Patient seen and examined at bedside. She is feeling better today with less pain. She does not like the Dilaudid. Still has not had a bowel movement. No nausea or vomiting. Vital signs reviewed General: Nontoxic, no distress, appears at stated age Cardiovascular: S1S2 reg, no murmur Lungs: CTA bilateral, no rhonchi, no rales, no accessory muscle use Abdominal: Soft, nontender to palpation, no guarding Ext: No gross muscle atrophy, no edema b/l lower extremities, no contractures, erythema to the left ankle- increasing with spread into foot, medial aspect with approximately half centimeter blood blister. Flexion and extension at the ankle intact. Neuro: CN II-XI grossly intact, no focal neuro deficits Psych: Alert, oriented, appropriate affect Assessment/Plan: Left lower extremity cellulitis wiht abscess, failed outpatient treatment Sepsis Rheumatoid arthritis - concern for possible underlying infectious arthritis - vancomycin pharmacy to dose, monitor Cr and trough D # 3 - Unasyn 3 g IBPB q 6 h D # 3 - hold IL-6 inhibitor -Infectious disease note reviewed: Await MRI. Continue vancomycin and Unasyn -Orthopedic recs: s/p I and D with drain placed, await cultures, await MRI -Percocet 7.5 mg p.o. every 6 hours as needed moderate pain, Dilaudid 0.25-1 mg IVP q 3 hours prn severe pain (of note patient has a reported codeine allergy but tolerated morphine in the ER) - repeat CBC and BMP in AM - LR at 75 cc/hr Constipation - dulcolax 5 mg PO X 1 now Tobacco dependency -Nicotine patch 14 mcg daily, nicotine gum 2 mg every 2 hours as needed nicotine cravings Imaging: None new Data Review: Labs reviewed from today include CBC and basic metabolic profile which are remarkable for white blood cell count 11.2, hemoglobin 11.3. CRP continues to elevated at 17.4. DVT prophylaxis: SCDs Anticipated discharge date: pending clinical course Anticipated discharge place: pending clinical course This dictation was prepared using [employer] voice recognition software. Though every attempt is made to correct errors during dictation some may still exist. Objective - Vital Signs Vital signs: Vital Signs Temp 98.2 F 01/15/24 12:33 Pulse 89 01/15/24 12:33 Resp 16 01/15/24 12:33 BP 161/82 01/15/24 12:33 Pulse Ox 100 01/15/24 12:33 FiO2 Intake & Output 01/14/24 01/15/24 01/15/24 18:59 06:59 18:59 Intake Total 800 Output Total 25 Balance 775 Weight 71.214 kg Intake: IV 550 Intake, IV Titration 250 Amount Vancomycin 1,250 mg In 250 Sodium Chloride 0.9% 250 ml @ 125 mls/hr IVPB Q8H [facility] Rx#:[id number] Output: Estimated Blood Loss 25 Other: Voiding Method Toilet Toilet Toilet Bedside Commode Bedside Commode Bedside Commode # Voids 1 - Labs CBC & Chem 7: 01/15/24 10:46 01/15/24 10:46 Labs: Abnormal Lab Results - Last 24 Hours (Table) 01/15/24 01/15/24 Range/Units 10:46 10:46 WBC 11.2 H (3.8-10.6) k/uL RBC 3.62 L (3.80-5.40) m/uL Hgb 11.3 L D (11.4-16.0) gm/dL Hct 32.9 L (34.0-46.0) % Creatinine 0.45 L (0.52-1.04) mg/dL Glucose 102 H (74-99) mg/dL C-Reactive Protein 17.2 H (<1.0) mg/dL Total Protein 5.7 L (6.3-8.2) g/dL Albumin 3.3 L (3.5-5.0) g/dL Microbiology - Last 24 Hours (Table) 01/14/24 11:35 Gram Stain - Preliminary Aspirate Body Fluid Culture - Preliminary
[2024-01-15] MEDS: oxyCODONE-APAP 7.5-325MG 1 EACH TAB PO PRN (17:44)
[2024-01-16 06:40] LABS: African American GFR (CKD) >90 (>60 ml/min/1.73 sqM); Anion Gap 6 mmol/L; Blood Urea Nitrogen 10 mg/dL (7-17); Calcium 8.9 mg/dL (8.4-10.2); Carbon Dioxide 25 mmol/L (22-30); Chloride 111 mmol/L (98-107); Glucose 109 mg/dL (74-99); Non-African American GFR(CKD) >90 (>60 ml/min/1.73 sqM); Potassium 4.2 mmol/L (3.5-5.1); Sodium 142 mmol/L (137-145)
[2024-01-16] MEDS: IBUPROFEN 400 MG TAB PO PRN (06:42)
[2024-01-16 11:51] LABS: HCT 35.7 % (37.2-46.3); HGB 12.1 g/dL (12.0-15.0); MCH 30.5 pg (27.0-32.0); MCHC 33.9 g/dL (32.0-37.0); MCV 89.9 FL (80.0-97.0); Mean Platelet Volume 11.1 FL (9.5-12.2); NRBC Per 100 WBC 0 X 10*3/uL (0.00-0.01); Platelet Count 220 X 10*3/uL (140-440); RBC 3.97 X 10*6/uL (4.10-5.20); RDW 12.4 % (11.5-14.5); WBC 8.39 X 10*3/uL (4.50-10.00)
--- NOTE | 2024-01-16 13:01 | MR ---
EXAMINATION TYPE: MR ankle LT wo con DATE OF EXAM: 01/15/2024 10:01 AM CLINICAL INDICATION:Female, 53 years old with history of evaluate ankle for possible joint sepsis, Ev aluate ankle for possible joint sepsis, left ankle cutaneous abscess COMPARISON: Radiographs 01/13/2024. TECHNIQUE: Multi planar, multi sequence imaging was performed. No Gadolinium given. IV Contrast: None. FINDINGS: LIGAMENTS AND TENDONS: The anterior talofibular ligament, calcaneofibular ligament, posterior talofi bular ligament, tibiofibular ligaments, and deltoid ligament are intact. The anterior compartment, p osterior compartment, lateral compartment, and medial compartment tendons have a normal appearance. The portion of the plantar fascia seen is unremarkable. OSSEOUS STRUCTURES AND CARTILAGE: There is an osteochondral defect along the medial talar dome with subchondral edema of the talus, otherwise the talar dome has a normal morphology and signal intensity . The sinus tarsus has a normal signal intensity. The bone marrow signal intensity is otherwise with in normal limits. There is diffuse edema throughout the soft tissues without organizing fluid collection. IMPRESSION: No evidence for septic joint. Osteochondral defect along the talar dome medially. Edema throughout the soft tissues with drainage catheter in place along the medial leg. No organizing fluid collection to suggest abscess on this exam possibly decompressed with drainage catheter. Findi ngs suggest cellulitis.
--- NOTE | 2024-01-16 13:43 | P.PN ---
Subjective Progress Note Date: 01/16/24 Principal diagnosis: Abscess left ankle. Infection left ankle. This is a 53-year-old female who presented to the emergency department this week with severe left ankle pain and swelling. She states that the symptoms began initially on December 30 or and she noticed there was some redness and swelling to the ankle. She was seen in urgent care and placed on prednisone and an antib iotic and her symptoms did improve. She then began to have worsening of her symptoms once she was off the prednisone. She does have history of rheumatoid arthritis. On presentation to the ER she had an elevated white count of 20 and elevated CRP and sed rate. She is admitted for IV antibiotics. We are consulted for orthopedic evaluation of her left ankle. 01/16/2024: The patient is postop day #2 status post I&D of the left ankle. Patient has been afebrile. Cultures are pending. There are no new complaints or concerns today. Objective - Vital Signs Vital signs: Vital Signs Temp 97.4 F L 01/16/24 07:37 Pulse 94 01/16/24 07:37 Resp 20 01/16/24 07:37 BP 173/88 01/16/24 07:37 Pulse Ox 99 01/16/24 07:37 FiO2 Intake & Output 01/15/24 01/16/24 01/16/24 18:59 06:59 18:59 Intake Total 590 Balance 590 Intake: Oral 590 Other: Voiding Method Toilet Toilet Toilet Bedside Commode Bedside Commode Bedside Commode # Voids 1 3 2 - Exam This is a pleasant 53-year-old female in no acute distress. She is alert and oriented x 3. Exam of the left ankle reveals that her dressing has purulent and sanguinous drainage. Her dressing is changed today. The wound looks good with minimal erythema. She is able to wiggle the toes without difficulty. Neurovascular status to the lower extremity is intact. - Labs CBC & Chem 7: 01/16/24 05:42 01/16/24 05:42 Labs: Abnormal Lab Results - Last 24 Hours (Table) 01/16/24 01/16/24 Range/Units 05:42 05:42 RBC 3.97 L (4.10-5.20) X 10*6/uL Hct 35.7 L (37.2-46.3) % Chloride 111 H (98-107) mmol/L Creatinine 0.50 L (0.52-1.04) mg/dL Glucose 109 H (74-99) mg/dL Microbiology - Last 24 Hours (Table) 01/14/24 16:16 Gram Stain - Preliminary Ankle - Left Wound Culture - Preliminary Assessment and Plan (1) Cutaneous abscess of left ankle Current Visit: Yes Status: Acute Code(s): L02.416 - CUTANEOUS ABSCESS OF LEFT LOWER LIMB SNOMED Code(s): 33830026654753611 (2) Cellulitis Current Visit: Yes Status: Acute Code(s): L03.90 - CELLULITIS, UNSPECIFIED SNOMED Code(s): 793883361 Plan: The clinical findings are discussed with the patient. We are awaiting final culture results. She may be discharged from an orthopedic standpoint once antibiotics for home are arranged. I recommend that she be in an equalizer boot for comfort when she is ambulating. She is to follow-up in our office in 2 weeks.
--- NOTE | 2024-01-16 14:47 | P.PN ---
Subjective Progress Note Date: 01/16/24 (delayed charting seen at 0830) Patient is a 53-year-old female with rheumatoid arthritis treated with..., Tobacco dependency, dyslipidemia, and osteoporosis who presented to the emergency department with complaints of worsening left ankle pain. She has been having pain for 3 weeks prior to presentation. She was seen at urgent care on 01/11/2024 and was diagnosed with cellulitis. She was therefore put on Bactrim and prednisone. On arrival to the ER she was found to be tachycardic with a pu lse of 112. Laboratory analysis included CBC, basic metabolic profile, coags, and CRP which was remarkable for white blood cell count 20.5 and CRP of 4.9. X- ray of the ankle found soft tissue edema with no definitive fracture. In the ER she was given a dose of vancomycin and morphine for pain control. Arrangements were made for observation. Infectious disease and orthopedic surgery were consul queta. She was seen by orthopedic surgery on 01/13. Initially she had a bedside aspirate done which showed 4 cc of purulent material into the subcutaneous abscess. Patient was then taken to the OR for left subcutaneous abscess irrigation and drain placement. She was rinsed with 1 L of fluid. Patient seen and examined at bedside. Hoping to go home, still has constipation did not take dulcolax yesterday. Vital signs reviewed General: Nontoxic, no distress, appears at stated age Cardiovascular: S1S2 reg, no murmur Lungs: CTA bilateral, no rhonchi, no rales, no accessory muscle use Abdominal: Soft, nontender to palpation, no guarding Ext: No gross muscle atrophy, no edema b/l lower extremities, no contractures, left ankle wrap in place. Neuro: CN II-XI grossly intact, no focal neuro deficits Psych: Alert, oriented, appropriate affect Assessment/Plan: Left lower extremity cellulitis wiht abscess, failed outpatient treatment Sepsis Rheumatoid arthritis - concern for possible underlying infectious arthritis - vancomycin pharmacy to dose, monitor Cr and trough D # 4 - Unasyn 3 g IBPB q 6 h D # 4 -Orthopedic surgery note reviewed: Follow-up in office in 2 weeks, equalizer boot for comfort when up and ambulating - wait for further infectious disease recommendations - hold IL-6 inhibitor -Infectious disease note reviewed: Await MRI. Continue vancomycin and Unasyn -Percocet 7.5 mg p.o. every 6 hours as needed moderate pain, Dilaudid 0.25-1 mg IVP q 3 hours prn severe pain (of note patient has a reported codeine allergy but tolerated morphine in the ER) - repeat CBC and BMP in AM - LR at 75 cc/hr Constipation - dulcolax 5 mg PO Tobacco dependency -Nicotine patch 14 mcg daily, nicotine gum 2 mg every 2 hours as needed nicotine cravings Imaging: Right ankle MRI: No evidence of septic joint, edema throughout the soft tissues with drainage catheter in place no organizing fluid collection Data Review: Labs reviewed from today include CBC and basic metabolic profile which are unremarkable Culture: Pending DVT prophylaxis: SCDs Anticipated discharge date: pending clinical course Anticipated discharge place: pending clinical course This dictation was prepared using [employer] voice recognition software. Though every attempt is made to correct errors during dictation some may still exist. Objective - Vital Signs Vital signs: Vital Signs Temp 98.0 F 01/16/24 13:25 Pulse 93 01/16/24 13:25 Resp 18 01/16/24 13:25 BP 167/88 01/16/24 13:25 Pulse Ox 100 01/16/24 13:25 FiO2 Intake & Output 01/15/24 01/16/24 01/16/24 18:59 06:59 18:59 Intake Total 590 Balance 590 Intake: Oral 590 Other: Voiding Method Toilet Toilet Toilet Bedside Commode Bedside Commode Bedside Commode # Voids 1 3 2 - Labs CBC & Chem 7: 01/16/24 05:42 01/16/24 05:42 Labs: Abnormal Lab Results - Last 24 Hours (Table) 01/16/24 01/16/24 Range/Units 05:42 05:42 RBC 3.97 L (4.10-5.20) X 10*6/uL Hct 35.7 L (37.2-46.3) % Chloride 111 H (98-107) mmol/L Creatinine 0.50 L (0.52-1.04) mg/dL Glucose 109 H (74-99) mg/dL Microbiology - Last 24 Hours (Table) 01/14/24 16:16 Gram Stain - Preliminary Ankle - Left Wound Culture - Preliminary
--- NOTE | 2024-01-16 15:50 | P.PN ---
Subjective Progress Note Date: 01/16/24 Principal diagnosis: Reason for follow-up is left ankle abscess and cellulitis Patient is a 53-year-old female with a past medical history significant for depression rheumatoid arthritis presenting to the hospital for evaluation of worsening pain to the left ankle area, patient has been diagnosed with cellulitis and concerning for localized abscess to the area patient is status post orthopedic aspiration of the area mentioned no fluid in the joint./Patient did have a drainage of the left ankle abscess which was noticed to be superficial subcutaneous and mention no extension to the joint. On today's visit that is 01/16/2024, the patient continues to be afebrile, the patient is on room air and breathing comfortably, the Pt denies having any chest pain or cough, the patient denies having any abdominal pain no vomiting or any diarrhea, pain to the left ankle area has decreased in intensity. Patient white count normalized to 8.39, creatinine 0.50 cultures currently pending, MRI was negative for septic joint Objective - Vital Signs Vital signs: Vital Signs Temp 97.4 F L 01/16/24 07:37 Pulse 94 01/16/24 07:37 Resp 20 01/16/24 07:37 BP 173/88 01/16/24 07:37 Pulse Ox 99 01/16/24 07:37 FiO2 Intake & Output 01/15/24 01/16/24 01/16/24 18:59 06:59 18:59 Intake Total 590 Balance 590 Intake: Oral 590 Other: Voiding Method Toilet Toilet Bedside Commode Bedside Commode # Voids 1 3 2 - Exam GENERAL DESCRIPTION: Middle-age female lying in bed in no distress RESPIRATORY SYSTEM: Unlabored breathing , decreased breath sounds at bases HEART: S1 S2 regular rate and rhythm , ABDOMEN: Soft , no tenderness EXTREMITIES: Left ankle area did have swelling and redness warm and tender to touch - Labs CBC & Chem 7: 01/16/24 05:42 01/16/24 05:42 Labs: Abnormal Lab Results - Last 24 Hours (Table) 01/15/24 01/15/24 01/16/24 Range/Units 10:46 10:46 05:42 WBC 11.2 H (3.8-10.6) k/uL RBC 3.62 L (3.80-5.40) m/uL Hgb 11.3 L D (11.4-16.0) gm/dL Hct 32.9 L (34.0-46.0) % Chloride 111 H (98-107) mmol/L Creatinine 0.45 L 0.50 L (0.52-1.04) mg/dL Glucose 102 H 109 H (74-99) mg/dL C-Reactive Protein 17.2 H (<1.0) mg/dL Total Protein 5.7 L (6.3-8.2) g/dL Albumin 3.3 L (3.5-5.0) g/dL 01/16/24 Range/Units 05:42 WBC (3.8-10.6) k/uL RBC 3.97 L (3.80-5.40) m/uL Hgb (11.4-16.0) gm/dL Hct 35.7 L (34.0-46.0) % Chloride (98-107) mmol/L Creatinine (0.52-1.04) mg/dL Glucose (74-99) mg/dL C-Reactive Protein (<1.0) mg/dL Total Protein (6.3-8.2) g/dL Albumin (3.5-5.0) g/dL Microbiology - Last 24 Hours (Table) 01/14/24 16:16 Gram Stain - Preliminary Ankle - Left Wound Culture - Preliminary 01/14/24 11:35 Gram Stain - Preliminary Aspirate Body Fluid Culture - Preliminary Assessment and Plan (1) Cutaneous abscess of left ankle Current Visit: Yes Status: Acute Code(s): L02.416 - CUTANEOUS ABSCESS OF LEFT LOWER LIMB SNOMED Code(s): 87482185434532080 Plan: 1patient presented to hospital with increasing pain and swelling and redness to the left ankle area concerning for cellulitis patient however did have an area of induration and fluctuation with concern for possible abscess, patient has been evaluated by orthopedics fluid has been aspirated sent for culture MRI has been ordered which is currently pending completion 2-patient is afebrile white count has normalized, patient to continue with the vancomycin and Unasyn while waiting for the culture to finalize to determine her discharge antibiotics more likely oral Dictation was produced using [employer] dictation software. please excuse any grammatical, word or spelling errors. Time with Patient: Less than 30
[2024-01-16] MEDS: SENNOSIDES-DOCUSATE SODIUM 1 EACH TAB PO PRN (21:10)
[2024-01-16] MEDS: diphenhydrAMINE 25 MG CAP PO PRN (21:10)
[2024-01-17 07:37] LABS: African American GFR (CKD) >90 (>60 ml/min/1.73 sqM); Anion Gap 6 mmol/L; Blood Urea Nitrogen 9 mg/dL (7-17); Calcium 8.4 mg/dL (8.4-10.2); Carbon Dioxide 24 mmol/L (22-30); Chloride 113 mmol/L (98-107); Glucose 89 mg/dL (74-99); Non-African American GFR(CKD) >90 (>60 ml/min/1.73 sqM); Potassium 4.3 mmol/L (3.5-5.1); Sodium 143 mmol/L (137-145)
--- NOTE | 2024-01-17 11:26 | P.PN ---
Subjective Progress Note Date: 01/17/24 Principal diagnosis: S/P I and D left ankle The patient is postop day #3 status post I&D of the left ankle. Patient has been afebrile. Pain is controlled. She has no new complainmts. Cultures showing S. Viridians . Objective - Vital Signs Vital signs: Vital Signs Temp 97.9 F 01/17/24 07:50 Pulse 79 01/17/24 07:50 Resp 19 01/17/24 07:50 BP 159/89 01/17/24 07:50 Pulse Ox 98 01/17/24 07:50 FiO2 Intake & Output 01/16/24 01/17/24 01/17/24 18:59 06:59 18:59 Intake Total 590 Output Total 0 Balance 590 Intake: Oral 590 Output: Stool 0 Other: Voiding Method Toilet Toilet Bedside Commode Bedside Commode # Voids 2 3 - Exam Exam of the left ankle reveals that her dressing has minimal purulent and sanguinous drainage. The wound is benign with minimal erythema. No active bleeding. She is able to wiggle the toes without difficulty. Neurovascular status to the lower extremity is intact. Calf is SNT - Constitutional General appearance: Present: no acute distress - Labs CBC & Chem 7: 01/16/24 05:42 01/17/24 06:22 Labs: Abnormal Lab Results - Last 24 Hours (Table) 01/16/24 01/17/24 Range/Units 05:42 06:22 RBC 3.97 L (4.10-5.20) X 10*6/uL Hct 35.7 L (37.2-46.3) % Chloride 113 H (98-107) mmol/L Creatinine 0.46 L (0.52-1.04) mg/dL Microbiology - Last 24 Hours (Table) 01/14/24 16:16 Gram Stain - Preliminary Ankle - Left Wound Culture - Preliminary Streptococcus viridans group 01/14/24 11:35 Gram Stain - Preliminary Aspirate Body Fluid Culture - Preliminary Streptococcus viridans group Assessment and Plan (1) Cutaneous abscess of left ankle Narrative/Plan: She will continue with routine postop orthopedic protocol including pain management, wound care, PT, DVT prophylaxis, ID and medical management. Boot has been ordered. She may D/C from orthopedic standpoint when ok with ID/IM and antibiotic selection has been determined. She is to f/u as outpatient. Current Visit: Yes Status: Acute Priority: Medium Code(s): L02.416 - CUTANEOUS ABSCESS OF LEFT LOWER LIMB SNOMED Code(s): 48182225400673573 Time with Patient: Less than 30
[2024-01-17 13:26] VITALS: BP 169/95; PULSE 70; RESP 18; TEMP 98.1
--- NOTE | 2024-01-17 15:16 | P.DS ---
Providers Date of admission: 01/14/24 16:20 Expected date of discharge: 01/17/24 Attending physician: Juana Cantrell MD Consults: 01/13/24 15:19 Consult Physician Routine Consulting Provider: Adán Valdes Consult Reason/Comments: cellulitis Do you want consulting provider notified?: Yes 01/14/24 09:01 Consult Physician Routine Consulting Provider: Michelet Alarcon Consult Reason/Comments: possible sepeptic arthritis Do you want consulting provider notified?: Yes Primary care physician: Rae Vela MD Hospital Course: Discharge Diagnosis: Left lower extremity cellulitis wiht abscess, failed outpatient treatment Sepsis Rheumatoid arthritis Constipation Tobacco dependency Hospital Course: Patient is a 53-year-old female with rheumatoid arthritis treated with..., Tobacco dependency, dyslipidemia, and osteoporosis who presented to the emergency department with complaints of worsening left ankle pain. She has been having pain for 3 weeks prior to presentation. She was seen at urgent care on 01/11/2024 and was diagnosed with cellulitis. She was therefore put on Bactrim and prednisone. On arrival to the ER she was found to be tachycardic with a pulse of 112. Laboratory analysis included CBC, basic metabolic profile, coags, and CRP which was remarkable for white blood cell count 20.5 and CRP of 4.9. X- ray of the ankle found soft tissue edema with no definitive fracture. In the ER she was given a dose of vancomycin and morphine for pain control. Infectious disease and orthopedic surgery were consulted. She was seen by orthopedic surgery on 01/13. Initially she had a bedside aspirate done which showed 4 cc of purulent material into the subcutaneous abscess. Patient was then taken to the OR for left subcutaneous abscess irrigation and drain placement. She was rinsed with 1 L of fluid. MRI of the ankle did not show any evidence of septic joint. Cultures grew Streptococcus viridans. Patient being discharged with oral Augmentin. Patient seen and examined at bedside. Vital signs reviewed and stable. General: Nontoxic, no distress, appears at stated age Derm: Warm, dry, dressing clean, dry, intact Head: Atraumatic, normocephalic, symmetric Eyes: EOMI, no lid lag, anicteric sclera Mouth: No lip lesion, mucus membranes moist Cardiovascular: S1S2 reg, no murmur Lungs: CTA bilateral, no rhonchi, no rales, no accessory muscle use Abdominal: Soft, nontender to palpation, no guarding, no appreciable organomegaly Ext: No gross muscle atrophy, no edema, no contractures Neuro: CN II-XI grossly intact, no focal neuro deficits Psych: Alert, oriented, appropriate affect A total of 33 minutes of time were spent preparing this complex discharge summary. Patient was discharged on 01/17/2024 at 1516. Patient Condition at Discharge: Stable Plan - Discharge Summary Discharge Rx Participant: Yes New Discharge Prescriptions: New Amoxic-Pot Clav 875-125Mg [Augmentin 875-125] 1 tab PO Q12HR 10 Days #20 tab Continue Cetirizine HCl [Zyrtec] 10 mg PO DAILY Sarilumab [Kevzara] 200 mg SQ Q14D Varenicline [Chantix Continuing Pack] 1 mg PO HS Cholecalciferol (Vitamin D3) [Vitamin D3 (125 MCG = 5,000 IU)] 125 mcg PO DAILY Simvastatin [Zocor] 80 mg PO HS Sertraline [Zoloft] 100 mg PO DAILY DULoxetine HCL [Cymbalta] 60 mg PO DAILY Alendronate Sodium [Fosamax] 70 mg PO DIRECTED Albuterol Sulfate [Albuterol Sulfate Hfa] 2 puff PO RT-Q6H PRN PRN Reason: Shortness Of Breath Discontinued Sulfamethoxazole/Trimethoprim [Bactrim DS 800-160 mg] 1 tab PO BID predniSONE [Deltasone] 40 mg PO DAILY Discharge Medication List Albuterol Sulfate [Albuterol Sulfate Hfa] 2 puff PO RT-Q6H PRN 01/13/24 [History] Alendronate Sodium [Fosamax] 70 mg PO DIRECTED 01/13/24 [History] Cetirizine HCl [Zyrtec] 10 mg PO DAILY 01/13/24 [History] Cholecalciferol (Vitamin D3) [Vitamin D3 (125 MCG = 5,000 IU)] 125 mcg PO DAILY 01/13/24 [History] DULoxetine HCL [Cymbalta] 60 mg PO DAILY 01/13/24 [History] Sarilumab [Kevzara] 200 mg SQ Q14D 01/13/24 [History] Sertraline [Zoloft] 100 mg PO DAILY 01/13/24 [History] Simvastatin [Zocor] 80 mg PO HS 01/13/24 [History] Varenicline [Chantix Continuing Pack] 1 mg PO HS 01/13/24 [History] Amoxic-Pot Clav 875-125Mg [Augmentin 875-125] 1 tab PO Q12HR 10 Days #20 tab 01/17/24 [Rx] Follow up Appointment(s)/Referral(s): Rae Vela MD [Primary Care Provider] - 1 Week [facility] [NON-STAFF] - 1 Week [facility], [REFERRING] - 1 Week Cruz Paredes MD [STAFF PHYSICIAN] - 2 Weeks Adán Valdes MD [STAFF PHYSICIAN] - 1 Week Activity/Diet/Wound Care/Special Instructions: Change dressing daily. May shower starting on Friday. May bear weight as tolerated in a boot. Please hold sarilumab while still being treated for active infection. Talk to your spring floor service worker prior to restarting the medication. Discharge Disposition: HOME WITH HOME HEALTH SERVICES
--- NOTE | 2024-01-17 15:52 | P.PN ---
Subjective Progress Note Date: 01/17/24 Principal diagnosis: Reason for follow-up is left ankle abscess and cellulitis Patient is a 53-year-old female with a past medical history significant for depression rheumatoid arthritis presenting to the hospital for evaluation of worsening pain to the left ankle area, patient has been diagnosed with cellulitis and concerning for localized abscess to the area patient is status post orthopedic aspiration of the area mentioned no fluid in the joint./Patient did have a drainage of the left ankle abscess which was noticed to be superficial subcutaneous and mention no extension to the joint. On today's visit that is 01/17/2024, Patient is afebrile patient is currently on room air and denies having any shortness of breath, the patient denies any chest pain or cough, the patient denies any nausea vomiting did not have any abdominal pain and no diarrhea, patient pain to the left ankle area has improved no drainage. Patient white count has been normal creatinine 0.46 culture with Streptococcus viridans Objective - Vital Signs Vital signs: Vital Signs Temp 97.9 F 01/17/24 07:50 Pulse 79 01/17/24 07:50 Resp 19 01/17/24 07:50 BP 159/89 01/17/24 07:50 Pulse Ox 98 01/17/24 07:50 FiO2 Intake & Output 01/16/24 01/17/24 01/17/24 18:59 06:59 18:59 Intake Total 590 Output Total 0 0 Balance 590 0 Intake: Oral 590 Output: Stool 0 0 Other: Voiding Method Toilet Toilet Toilet Bedside Commode Bedside Commode Bedside Commode # Voids 2 3 - Exam GENERAL DESCRIPTION: Middle-age female lying in bed in no distress RESPIRATORY SYSTEM: Unlabored breathing , decreased breath sounds at bases HEART: S1 S2 regular rate and rhythm , ABDOMEN: Soft , no tenderness EXTREMITIES: Left ankle area wound from surgical drainage surrounding swelling redness improved no drainage - Labs CBC & Chem 7: 01/16/24 05:42 01/17/24 06:22 Labs: Abnormal Lab Results - Last 24 Hours (Table) 01/17/24 Range/Units 06:22 Chloride 113 H (98-107) mmol/L Creatinine 0.46 L (0.52-1.04) mg/dL Microbiology - Last 24 Hours (Table) 01/14/24 16:16 Anaerobic Culture - Preliminary Ankle - Left 01/14/24 16:16 Gram Stain - Preliminary Ankle - Left Wound Culture - Preliminary Streptococcus viridans group 01/14/24 11:35 Gram Stain - Preliminary Aspirate Body Fluid Culture - Preliminary Streptococcus viridans group Assessment and Plan (1) Cutaneous abscess of left ankle Current Visit: Yes Status: Acute Priority: Medium Code(s): L02.416 - CUTANEOUS ABSCESS OF LEFT LOWER LIMB SNOMED Code(s): 73416271585613769 Plan: 1patient presented to hospital with increasing pain and swelling and redness to the left ankle area concerning for cellulitis patient however did have an area of induration and fluctuation with concern for possible abscess, patient has been evaluated by orthopedics fluid has been aspirated sent for culture MRI has been ordered which is currently pending completion 2-patient is afebrile white count has normalized, cultures currently growing strep viridans possibly oxacillin sensitive and improved with the Unasyn we will recommend a 10-day course of oral Augmentin and local wound care with Aquacel silver dressing and close outpatient follow-up as the patient has been insisting on going home since yesterday culture results will be followed and antibiotic adjusted if needed this was discussed in detail with the admitting team to continue monitoring her cultures post discharge Dictation was produced using [employer] dictation software. please excuse any grammatical, word or spelling errors. Time with Patient: Less than 30
[2024-01-17 16:20] LABS: HCT 34.2 % (34.0-46.0); HGB 11.7 gm/dL (11.4-16.0); MCH 31.3 pg (25.0-35.0); MCHC 34.1 g/dL (31.0-37.0); MCV 91.9 fL (80.0-100.0); Platelet Count 232 k/uL (150-450); RBC 3.72 m/uL (3.80-5.40); RDW 12.4 % (11.5-15.5); WBC 6.9 k/uL (3.8-10.6)
[2024-01-18] MEDS ORDERED: VANCOMYCIN TROUGH DUE 1 EACH MISC MISCELLANE ONE (10:00)
== END 2024-01-17 16:20 | disposition home health service (06) | DRG 872 ==
LOC: EC 13:16 → 6NMEDSUR 15:21 → 5NMEDONC 16:38 → OBSVTOIN 01-14 16:20
PROVIDERS: ADMIT Family Medicine; ATTEND Family Medicine
PROC: 0J9R00Z Drainage of Left Foot Subcutaneous Tissue and Fascia with Drainage Device, Open Approach (ICD-10-PCS; principal; 2024-01-14 09:40)
DX: A40.8 Other streptococcal sepsis (principal); D84.9 Immunodeficiency, unspecified; L02.416 Cutaneous abscess of left lower limb; L03.116 Cellulitis of left lower limb; Z88.5 Allergy status to narcotic agent; F12.10 Cannabis abuse, uncomplicated; M06.9 Rheumatoid arthritis, unspecified; F17.210 Nicotine dependence, cigarettes, uncomplicated; Z71.6 Tobacco abuse counseling; M81.0 Age-related osteoporosis without current pathological fracture; J30.2 Other seasonal allergic rhinitis; F32.A Depression, unspecified; E78.5 Hyperlipidemia, unspecified; K59.00 Constipation, unspecified; Z79.83 Long term (current) use of bisphosphonates; Z79.899 Other long term (current) drug therapy
CPT/HCPCS: 36415; 80048; 80053; 80202; 84703; 85025; 85027; 85610; 85652; 85730; 86140; 87070; 87075; 87205; 88304; 89050; 89060; 96365; 96366; 96374; 96375; 99285